=== PATIENT | male | born 1940 | race Caucasian/White ===

== ENCOUNTER 2019-05-10 07:12 | Day surgery (SDC) | payer MEDICARE, BC ==
[~2019-05-10 07:12] MED LIST: Brimonidine 0.2% Ophth Soln 5 ML Bottle EYERT SCH; Cefuroxime 10 MG/ML SYRINGE EYERT SCH; Lidocaine 1% PF 2 ML SDV INJECT PRN; Lidocaine 1% PF 2 ML SDV INJECT SCH; Phenylephrine 2.5% Ophth Soln 2 ML Bot EYERT SCH; Pilocarpine 4% Ophth Soln 15 ML Bot EYERT SCH; Polymyxin B/Trimethoprim 10 ML Bottle EYERT SCH; Tetracaine HCl/PF 0.5% 4 ML Bottle EYERT SCH; Tropicamide 1% Ophth Soln 3 ML Bottle EYERT SCH
[2019-05-10] MEDS: Polymyxin B/Trimethoprim 10 ML Bottle EYERT SCH ×2 (07:25→07:55)
[2019-05-10] MEDS: Brimonidine 0.2% Ophth Soln 5 ML Bottle EYERT SCH ×3 (07:30→08:30)
[2019-05-10] MEDS: Phenylephrine 2.5% Ophth Soln 2 ML Bot EYERT SCH ×5 (07:33→08:52)
[2019-05-10] MEDS: Tropicamide 1% Ophth Soln 15 ML Bottle EYERT SCH ×4 (07:37→08:12)
--- NOTE | 2019-05-10 07:49 | PCM.PREANE ---
Preanesthetic Assessment - Anesthesia/Transfusion/Family Hx Anesthesia History: Prior Anesthesia Without Reaction Family History of Anesthesia Reaction: No Transfusion History: No Prior Transfusion(s) - Review of Systems General: No Symptoms Pulmonary: No Symptoms Gastrointestinal: No Symptoms Neurological: No Symptoms Other: Reports: None - Physical Assessment NPO Status Date: 05/09/19 NPO Status Time: 18:30 Height: 1.8 m Weight: 131.542 kg ASA Class: 2 Mental Status: Alert & Oriented x3 Airway Class: Mallampati = 2 Dentition: Reports: Dentures (upper) Thyro-Mental Finger Breadths: 3 Mouth Opening Finger Breadths: 3 ROM/Head Extension: Full Lungs: Clear to Auscultation, Normal Respiratory Effort Cardiovascular: Regular Rate, Irregular Rhythm (afib) - Allergies Allergies/Adverse Reactions: Allergies Allergy/AdvReac Type Severity Reaction Status Date / Time No Known Allergies Allergy Verified 05/09/19 10:11 - Anesthesia Plan Beta Narendra: Metoprolol Med Last Dose Date: 05/10/19 Med Last Dose Time: 05:40 - Acknowledgements Anesthesia Type Planned: MAC Pt an Appropriate Candidate for the Planned Anesthesia: Yes Alternatives and Risks of Anesthesia Discussed w Pt/Guardian: Yes Pt/Guardian Understands and Agrees with Anesthesia Plan: Yes PreAnesthesia Questionnaire HEENT History: Reports: Cataract Cardiovascular History: Reports: Afib, High Cholesterol, Hypertension, SOB on Exertion Respiratory History: Reports: Sleep Apnea (CPAP) Genitourinary History: Reports: Other (See Below) ((L) renal cyst) Musculoskeletal History: Reports: Arthritis Endocrine/Metabolic History: Reports: Diabetes, Type II, Hypothyroidism - Past Surgical History HEENT Surgical History: Reports: Tonsillectomy GI Surgical History: Reports: Colonoscopy Male Surgical History: Reports: TURP-Transurethral Resection of Prostate - HOME MEDS Home Medications: Home Meds Allopurinol [Zyloprim] 100 mg PO DAILY 05/09/19 [History] Apixaban [Eliquis] 5 mg PO BID 05/09/19 [History] Carboxymethylcellulose Sodium [Refresh Tears 0.5% Ophth Soln] 1 drop OP DAILY [History] Cholecalciferol (Vitamin D3) [Vitamin D3] 5,000 unit PO DAILY 05/09/19 [History] Furosemide 40 mg PO Q2D 05/09/19 [History] Levothyroxine 75 mcg PO ACBREAKFAST 05/09/19 [History] Losartan [Cozaar] 25 mg PO DAILY 05/09/19 [History] Melatonin 5 mg PO BEDTIME PRN 05/09/19 [History] Metoprolol Tartrate 100 mg PO QPM 05/09/19 [History] Metoprolol Tartrate 150 mg PO QAM 05/09/19 [History] Simvastatin [Zocor] 20 mg PO BEDTIME 05/09/19 [History] Verapamil [Verapamil ER] 240 mg PO DAILY 05/09/19 [History] Vit C/E/Zn/Coppr/Lutein/Zeaxan [Preservision Areds 2 Softgel] 1 cap PO BID 05/09 [History] metFORMIN HCl [Metformin HCl] 500 mg PO BID 05/09/19 [History] - CURRENT (IN HOUSE) MEDS Current Meds: Current Medications Brimonidine Tartrate (Alphagan 0.2% Ophth Soln) 0 ml EYERT ONETIME TANISHA Stop: 05/11/19 18:00 Last Admin: 05/10/19 07:30 Dose: 1 drop Cefuroxime Sodium (Zinacef) 0 mg EYERT ASDIRECTED TANISHA Stop: 05/10/19 18:00 Lidocaine HCl (Xylocaine-Mpf 1%) 0 ml INJECT ONETIME PRN PRN Reason: Other Stop: 05/11/19 18:00 Phenylephrine HCl (Alex-Synephrine 2.5% Ophth Soln) 0 ml EYERT ASDIRECTED TANISHA Stop: 05/11/19 18:00 Last Admin: 05/10/19 07:40 Dose: 1 drop Pilocarpine HCl (Pilocar 4% Ophth Soln) 0 ml EYERT ASDIRECTED TANISHA Stop: 05/10/19 18:00 Polymyxin/Trimethoprim Sulfate (Polytrim Ophth Soln) 0 ml EYERT ONETIME TANISHA Stop: 05/10/19 18:00 Last Admin: 05/10/19 07:25 Dose: 1 drop Tetracaine HCl (Tetracaine 0.5% Steri-Unit Mar) 0 ml EYERT ASDIRECTED TANISHA Stop: 05/10/19 18:00 Tropicamide (Mydriacyl 1% Ophth Soln) 0 ml EYERT ASDIRECTED TANISHA Stop: 05/10/19 18:00 Last Admin: 05/10/19 07:37 Dose: 1 drop Discontinued Medications Brimonidine Tartrate (Alphagan 0.2% Ophth Soln) 1 ml EYERT ASDIRECTED TANISHA Brimonidine Tartrate (Alphagan 0.2% Ophth Soln) 1 ml EYERT ASDIRECTED TANISHA Cefuroxime Sodium (Zinacef) 0 mg EYERT ASDIRECTED TANISHA Cefuroxime Sodium (Zinacef) 0 mg EYERT ASDIRECTED TANISHA Lidocaine HCl (Xylocaine-Mpf 1%) 1 ml INJECT ASDIRECTED TANISHA Lidocaine HCl (Xylocaine-Mpf 1%) 1 ml INJECT ASDIRECTED TANISHA Phenylephrine HCl (Alex-Synephrine 2.5% Ophth Soln) 0 ml EYERT ASDIRECTED TANISHA Phenylephrine HCl (Alex-Synephrine 2.5% Ophth Soln) 0 ml EYERT ASDIRECTED TANISHA Pilocarpine HCl (Pilocar 4% Ophth Soln) 0 ml EYERT ASDIRECTED TANISHA Pilocarpine HCl (Pilocar 4% Ophth Soln) 0 ml EYERT ASDIRECTED TANISHA Polymyxin/Trimethoprim Sulfate (Polytrim Ophth Soln) 0 ml EYERT ASDIRECTED TANISHA Polymyxin/Trimethoprim Sulfate (Polytrim Ophth Soln) 0 ml EYERT ASDIRECTED TANISHA Tetracaine HCl (Tetracaine 0.5% Steri-Unit Mar) 1 ml EYERT ASDIRECTED TANISHA Tetracaine HCl (Tetracaine 0.5% Steri-Unit Mar) 1 ml EYERT ASDIRECTED TANISHA Tropicamide (Mydriacyl 1% Ophth Soln) 0 ml EYERT ASDIRECTED TANISHA Stop: 05/13/19 07:01 Tropicamide (Mydriacyl 1% Ophth Soln) 0 ml EYERT ASDIRECTED TANISHA Stop: 05/13/19 07:01
[2019-05-10] MEDS: Tetracaine HCl/PF 0.5% 4 ML Bottle EYERT SCH ×4 (08:16→08:32)
--- NOTE | 2019-05-10 09:15 | PCM48HPAN ---
Post Anesthesia Note - EVALUATION WITHIN 48HRS OF ANESTHETIC Vital Signs in Normal Range: Yes Patient Participated in Evaluation: Yes Respiratory Function Stable: Yes Airway Patent: Yes Cardiovascular Function Stable: Yes Hydration Status Stable: Yes Pain Control Satisfactory: Yes Nausea and Vomiting Control Satisfactory: Yes Mental Status Recovered: Yes Vital Signs: Last Vital Signs Temp 36.2 C 05/10/19 07:20 Pulse 89 05/10/19 07:20 Resp 16 05/10/19 07:20 BP 146/87 H 05/10/19 07:20 Pulse Ox 98 05/10/19 07:20
== END 2019-05-10 09:25 | disposition home or self-care (01) ==
LOC: JD.SDS 07:12
PROVIDERS: ATTEND Ophthalmology
DX: E11.36 Type 2 diabetes mellitus with diabetic cataract (principal); H25.813 Combined forms of age-related cataract, bilateral; H35.363 Drusen (degenerative) of macula, bilateral; H35.3132 Nonexudative age-related macular degeneration, bilateral, intermediate dry stage; H35.341 Macular cyst, hole, or pseudohole, right eye; H16.223 Keratoconjunctivitis sicca, not specified as Sjogren's, bilateral; H02.834 Dermatochalasis of left upper eyelid; H02.831 Dermatochalasis of right upper eyelid; M19.90 Unspecified osteoarthritis, unspecified site; E78.00 Pure hypercholesterolemia, unspecified; I10 Essential (primary) hypertension; Z79.899 Other long term (current) drug therapy; Z79.82 Long term (current) use of aspirin; Z79.84 Long term (current) use of oral hypoglycemic drugs
CPT/HCPCS: 66982; C1780; J0697; J2001

== ENCOUNTER 2019-06-12 07:08 | Day surgery (SDC) | payer MEDICARE, BC ==
[~2019-06-12 07:08] MED LIST changes: -Brimonidine 0.2% Ophth Soln 5 ML Bottle EYERT SCH; +Cefuroxime 10 MG/ML SYRINGE EYELF SCH; -Cefuroxime 10 MG/ML SYRINGE EYERT SCH; -Lidocaine 1% PF 2 ML SDV INJECT PRN; -Phenylephrine 2.5% Ophth Soln 2 ML Bot EYERT SCH; +Pilocarpine 4% Ophth Soln 15 ML Bot EYELF SCH; -Pilocarpine 4% Ophth Soln 15 ML Bot EYERT SCH; -Polymyxin B/Trimethoprim 10 ML Bottle EYERT SCH; -Tetracaine HCl/PF 0.5% 4 ML Bottle EYERT SCH; -Tropicamide 1% Ophth Soln 3 ML Bottle EYERT SCH
[2019-06-12] MEDS: Polymyxin B/Trimethoprim 10 ML Bottle EYELF SCH ×3 (07:25→09:04)
[2019-06-12] MEDS: Brimonidine 0.2% Ophth Soln 5 ML Bottle EYELF SCH ×3 (07:30→09:04)
[2019-06-12] MEDS: Phenylephrine 2.5% Ophth Soln 2 ML Bot EYELF SCH ×5 (07:35→08:43)
--- NOTE | 2019-06-12 07:38 | PCM.PREANE ---
Preanesthetic Assessment - Procedure Proposed Procedure: cataract left - Anesthesia/Transfusion/Family Hx Anesthesia History: Prior Anesthesia Without Reaction Family History of Anesthesia Reaction: No Transfusion History: No Prior Transfusion(s) - Review of Systems General: No Symptoms Pulmonary: No Symptoms Cardiovascular: No Symptoms Gastrointestinal: No Symptoms Neurological: No Symptoms Other: Reports: Diabetes (pre), Thyroid Problems - Physical Assessment NPO Status Date: 06/11/19 NPO Status Time: 18:30 Vital Signs: 97 134/94 92 98% 16 Height: 5 ft 11 in Weight: 131.542 kg ASA Class: 2 Mental Status: Alert & Oriented x3 Airway Class: Mallampati = 1 Dentition: Reports: Normal Dentition Thyro-Mental Finger Breadths: 3 Mouth Opening Finger Breadths: 3 ROM/Head Extension: Full Lungs: Clear to Auscultation, Normal Respiratory Effort Cardiovascular: Regular Rate, Irregular Rhythm - Allergies Allergies/Adverse Reactions: Allergies Allergy/AdvReac Type Severity Reaction Status Date / Time No Known Allergies Allergy Verified 06/07/19 10:25 - Blood Blood Available: No - Anesthesia Plan Beta Narendra: Metoprolol Med Last Dose Date: 06/12/19 Med Last Dose Time: 05:30 - Acknowledgements Anesthesia Type Planned: MAC Pt an Appropriate Candidate for the Planned Anesthesia: Yes Alternatives and Risks of Anesthesia Discussed w Pt/Guardian: Yes Pt/Guardian Understands and Agrees with Anesthesia Plan: Yes PreAnesthesia Questionnaire HEENT History: Reports: Cataract Cardiovascular History: Reports: Afib, High Cholesterol, Hypertension, SOB on Exertion Respiratory History: Reports: Sleep Apnea (CPAP) Genitourinary History: Reports: Other (See Below) ((L) renal cyst) Musculoskeletal History: Reports: Arthritis Endocrine/Metabolic History: Reports: Diabetes, Type II, Hypothyroidism, Obesity /BMI 30+ Oncologic (Cancer) History: Reports: None - Past Surgical History GI Surgical History: Reports: Colonoscopy Male Surgical History: Reports: TURP-Transurethral Resection of Prostate - History Comment History Comment: occ gout - SUBSTANCE USE Smoking Status *Q: Former Smoker Tobacco Use Within Last Twelve Months: No Second Hand Smoke Exposure: No Days Per Week of Alcohol Use: 0 Recreational Drug Use History: No - HOME MEDS Home Medications: Home Meds Allopurinol [Zyloprim] 100 mg PO DAILY 05/09/19 [History] Apixaban [Eliquis] 5 mg PO BID 05/09/19 [History] Carboxymethylcellulose Sodium [Refresh Tears 0.5% Ophth Soln] 1 drop OP DAILY [History] Cholecalciferol (Vitamin D3) [Vitamin D3] 5,000 unit PO DAILY 05/09/19 [History] Furosemide 40 mg PO Q2D 05/09/19 [History] Levothyroxine 75 mcg PO ACBREAKFAST 05/09/19 [History] Losartan [Cozaar] 25 mg PO DAILY 05/09/19 [History] Melatonin 5 mg PO BEDTIME PRN 05/09/19 [History] Metoprolol Tartrate 100 mg PO QPM 05/09/19 [History] Metoprolol Tartrate 150 mg PO QAM 05/09/19 [History] Simvastatin [Zocor] 20 mg PO BEDTIME 05/09/19 [History] Verapamil [Verapamil ER] 240 mg PO DAILY 05/09/19 [History] Vit C/E/Zn/Coppr/Lutein/Zeaxan [Preservision Areds 2 Softgel] 1 cap PO BID 05/09 [History] metFORMIN HCl [Metformin HCl] 500 mg PO BID 05/09/19 [History] - CURRENT (IN HOUSE) MEDS Current Meds: Current Medications Brimonidine Tartrate (Alphagan 0.2% Ophth Soln) 0 ml EYELF ASDIRECTED TANISHA Stop: 06/12/19 23:00 Last Admin: 06/12/19 07:30 Dose: 1 drop Cefuroxime Sodium (Zinacef) 0 mg EYELF ASDIRECTED TANISHA Stop: 06/12/19 23:00 Influenza Virus Vaccine (Fluzone High-Dose 2019-20 Syringe) 180 mcg IM .ONCE ONE Stop: 06/12/19 10:46 Lidocaine HCl (Xylocaine-Mpf 1%) 0 ml INJECT ASDIRECTED TANISHA Stop: 06/12/19 23:00 Phenylephrine HCl (Alex-Synephrine 2.5% Ophth Soln) 0 ml EYELF ASDIRECTED TANISHA Stop: 06/12/19 23:00 Pilocarpine HCl (Pilocar 4% Ophth Soln) 0 ml EYELF ASDIRECTED TANISHA Stop: 06/12/19 23:00 Polymyxin/Trimethoprim Sulfate (Polytrim Ophth Soln) 0 ml EYELF ASDIRECTED TANISHA Stop: 06/12/19 23:00 Last Admin: 06/12/19 07:25 Dose: 1 drop Tetracaine HCl (Tetracaine 0.5% Steri-Unit Mar) 0 ml EYELF ASDIRECTED TANISHA Stop: 06/12/19 23:00 Tropicamide (Mydriacyl 1% Ophth Soln) 0 ml EYELF ASDIRECTED TANISHA Stop: 06/12/19 23:00 Discontinued Medications Influenza Virus Vaccine (Pharmacy To Dose - Influenza Vaccine) 1 each IM ONETIME TANISHA
[2019-06-12] MEDS: Tropicamide 1% Ophth Soln 15 ML Bottle EYELF SCH ×4 (07:40→08:24)
[2019-06-12] MEDS: Tetracaine HCl/PF 0.5% 4 ML Bottle EYELF SCH ×2 (08:36→08:49)
--- NOTE | 2019-06-12 09:07 | PCM48HPAN ---
Post Anesthesia Note - EVALUATION WITHIN 48HRS OF ANESTHETIC Vital Signs in Normal Range: Yes Patient Participated in Evaluation: Yes Respiratory Function Stable: Yes Airway Patent: Yes Cardiovascular Function Stable: Yes Hydration Status Stable: Yes Pain Control Satisfactory: Yes Nausea and Vomiting Control Satisfactory: Yes Mental Status Recovered: Yes Vital Signs: Last Vital Signs Temp 97.0 F 06/12/19 07:15 Pulse 92 06/12/19 07:15 Resp 16 06/12/19 07:15 BP 134/94 H 06/12/19 07:15 Pulse Ox 98 06/12/19 07:15 126/79 93 16 98%
[2019-06-12] MEDS ORDERED: FLU Vacc QS2019-20(6MOS+)/PF 60 MCG/0.5 ML SYRINGE IM ONE (11:01)
== END 2019-06-12 09:16 | disposition home or self-care (01) ==
LOC: JD.SDS 07:08
PROVIDERS: ATTEND Ophthalmology
DX: H25.812 Combined forms of age-related cataract, left eye (principal); H21.81 Floppy iris syndrome; H21.42 Pupillary membranes, left eye; M19.90 Unspecified osteoarthritis, unspecified site; E78.00 Pure hypercholesterolemia, unspecified; I10 Essential (primary) hypertension; Z87.891 Personal history of nicotine dependence
CPT/HCPCS: 66982; 90686; J0697; J2001; C1780

== ENCOUNTER 2024-09-08 11:00 | Emergency (ER) | payer MEDICARE, BC ==
[2024-09-08] MEDS: Lidocaine 2% 11 ML Jelly Filled Syringe MUCMEM ONE ×2 (12:45→18:07)
[2024-09-08 13:04] LABS: APPEARANCE,URINE TURBID (Clear); BILIRUBIN,URINE 1+ (Negative); COLOR,URINE RED (Yellow); GLUCOSE,URINE NEGATIVE (Negative); KETONES,URINE NEGATIVE (Negative); LEUKOCYTE ESTERASE,URINE 3+ (Negative); NITRITE,URINE POSITIVE (Negative); OCCULT BLOOD,URINE 3+ (Negative); PROTEIN,URINE 3+ (Negative)
[2024-09-08 13:16] LABS: BACTERIA,URINE MANY /hpf (FEW); MUCUS,URINE FEW /hpf (FEW); RBC,URINE TOO NUMEROUS TO CNT /hpf (0-5); SQUAMOUS EPITHELIAL CELLS,UR 0-5 /hpf (0-5); WBC,URINE 40-50 /hpf (0-5)
[2024-09-08] MEDS ORDERED: Naloxone 0.4 MG/ML SDV IVPUSH PRN ×2 (13:58→17:57)
[2024-09-08] MEDS: Morphine 2 MG/ML SYRINGE IM ONE (14:50)
[2024-09-08 15:15] LABS: BASOPHILS ABSOLUTE AUTO 0.1 K/mm3 (0.0-0.2); BASOPHILS PERCENT AUTO 0.7 % (0.0-1.0); EOSINOPHILS ABSOLUTE AUTO 0.1 K/mm3 (0.0-0.4); EOSINOPHILS PERCENT AUTO 1.7 % (0.0-6.0); HEMATOCRIT 37.7 % (42.0-52.0); HEMOGLOBIN 12.3 gm/dl (14.0-18.0); IMMATURE GRAN ABSOLUTE AUTO 0.03 K/mm3 (0.00-0.05); IMMATURE GRAN PERCENT AUTO 0.4 % (0.0-0.4); LYMPHOCYTES ABSOLUTE AUTO 0.8 K/mm3 (1.0-4.8); MEAN CORPUSCULAR HEMOGLOBIN 30.1 pg (28.0-32.0); MEAN CORPUSCULAR HGB CONC 32.6 g/dl (32.0-36.0); MEAN CORPUSCULAR VOLUME 92.4 fl (83.0-99.0); MEAN PLATELET VOLUME 8.5 fl (9.4-12.4); MONOCYTES ABSOLUTE AUTO 0.8 K/mm3 (0.0-0.8); MONOCYTES PERCENT AUTO 9.9 % (0.0-8.0); NEUTROPHILS ABSOLUTE AUTO 5.8 K/mm3 (1.8-7.7); NEUTROPHILS PERCENT AUTO 76.3 % (41.0-71.0); PLATELET COUNT,PLT 263 K/mm3 (150-400); RED BLOOD CELL COUNT 4.08 M/mm3 (4.52-5.90); WHITE BLOOD CELL COUNT,WBC 7.56 K/mm3 (3.9-11.3)
[2024-09-08 15:33] LABS: A/G RATIO 0.8 (1-2); ALBUMIN 2.8 g/dl (3.4-5.0); BILIRUBIN TOTAL 0.5 mg/dL (0.2-1.0); BUN/CREATININE RATIO 11.9 (14-18); CALCIUM 9.1 mg/dL (8.5-10.1); CREATININE 1.6 mg/dL (0.7-1.3); EST CRCL DRUG DOSING (CG) 36.6 mL/min; PROTEIN TOTAL,TP 6.4 g/dl (6.4-8.2)
[2024-09-08] MEDS: Lidocaine 2% 11 ML Jelly Filled Syringe ONE (17:11)
[2024-09-08] MEDS: Iopamidol 612 MG/ML 100 ML Bottle IVPUSH ONE (17:15)
[2024-09-08] MEDS: Sodium Chloride 0.9% 10 ML Syringe FLUSH ONE (17:16)
[2024-09-08] MEDS: Levofloxacin/Dextrose 5%-Water 750 MG in Premix Bag 1 BAG IV ONE (17:20)
[2024-09-08] MEDS: Sodium Chloride 0.9% 1,000 ML IV SCH (17:20)
[2024-09-08] MEDS: fentaNYL 100 MCG/2 ML SDV IVPUSH ONE (18:07)
== END 2024-09-08 20:23 ==
LOC: JD.ED 11:00
DX: N40.0 Benign prostatic hyperplasia without lower urinary tract symptoms (principal); N39.0 Urinary tract infection, site not specified; R31.0 Gross hematuria; Z96.0 Presence of urogenital implants; Z85.46 Personal history of malignant neoplasm of prostate; I10 Essential (primary) hypertension; I48.91 Unspecified atrial fibrillation; E78.00 Pure hypercholesterolemia, unspecified; E11.9 Type 2 diabetes mellitus without complications; E03.9 Hypothyroidism, unspecified; E66.9 Obesity, unspecified; Z79.01 Long term (current) use of anticoagulants; Z79.899 Other long term (current) drug therapy; Z79.84 Long term (current) use of oral hypoglycemic drugs; Z79.890 Hormone replacement therapy; Z68.34 Body mass index [BMI] 34.0-34.9, adult
CPT/HCPCS: 36415; 51702; 51798; 74177; 80053; 81001; 85025; 87086; 87088; 87186; 96365; 96375; 99284; A9270; J1956; J2270; J3010; J7030; Q9967; 99285